=== PATIENT | female | born 1995 | race African-American/Black ===

== ENCOUNTER 2017-11-30 03:00 | Emergency (ER) | payer SELFPAY ==
[2017-11-30 03:35] LABS: BILIRUBIN,URINE NEGATIVE (NEG); CLARITY,URINE CLEAR; COLOR,URINE YELLOW; GLUCOSE,URINE NEGATIVE (NEG); NITRITE,URINE NEGATIVE (NEG); PROTEIN,URINE NEGATIVE (NEG-TRACE); UROBILINOGEN,URINE 0.2 mg/dL (0.2 mg/dL)
[2017-11-30 03:37] LABS: URINE HCG POC HCG NEGATIVE (Negative)
[2017-11-30 03:44] LABS: BACTERIA,URINE FEW /HPF (0-FEW); RBC,URINE 0 /HPF (0-2); SQUAMOUS EPITHELIAL CELL,UR FEW /LPF; TRICHOMONAS,URINE PRESENT; WBC,URINE 20-40 /HPF (0-4)
[2017-11-30 03:47] LABS: ADD MAN DIFF? NO
[2017-11-30 03:50] LABS: BASO # 0.1 x10^3/uL (0.0-0.2); BASO % 1 % (0-3); EOS # 0.1 x10^3/uL (0.0-0.7); EOS % 1 % (0-3); HEMATOCRIT 36.1 % (36.0-47.0); HEMOGLOBIN 12.2 g/dL (12.0-15.5); LYMPH # 2.8 x10^3/uL (1.0-4.8); LYMPH % 30 % (24-48); MEAN CORPUSCULAR HEMOGLOBIN 31 pg (25-35); MEAN CORPUSCULAR HGB CONC 34 g/dL (31-37); MEAN CORPUSCULAR VOLUME 92 fL (79-100); MONO # 0.7 x10^3/uL (0.0-1.1); MONO % 8 % (0-9); NEUT # 5.6 x10^3uL (1.8-7.7); NEUT % 60 % (31-73); PLATELET COUNT 260 x10^3/uL (140-400); RED BLOOD COUNT 3.94 x10^6/uL (3.50-5.40); RED CELL DISTRIBUTION WIDTH 14.3 % (11.5-14.5); WHITE BLOOD COUNT 9.3 x10^3/uL (4.0-11.0)
[2017-11-30] MEDS: HYOSCYAMINE 0.125 MG TAB.RAPDIS PO (03:59)
[2017-11-30 04:26] LABS: ANION GAP 9 (6-14); BLOOD UREA NITROGEN 9 mg/dL (7-20); BUN/CREATININE RATIO 11 (6-20); CALCIUM 8.7 mg/dL (8.5-10.1); CARBON DIOXIDE 27 mmol/L (21-32); CHLORIDE 106 mmol/L (98-107); CREATININE 0.8 mg/dL (0.6-1.0); GFR 106.6; GLUCOSE 73 mg/dL (70-99); POTASSIUM 3.5 mmol/L (3.5-5.1); SODIUM 142 mmol/L (136-145)
[2017-11-30 04:32] LABS: ALBUMIN 3.4 g/dL (3.4-5.0); ALBUMIN/GLOBULIN RATIO 0.9 (1.0-1.7); ALK PHOS 50 U/L (46-116); ALT (SGPT) 15 U/L (14-59); AST (SGOT) 11 U/L (15-37); LIPASE 195 U/L (73-393); TOTAL BILIRUBIN 0.2 mg/dL (0.2-1.0); TOTAL PROTEIN 7.1 g/dL (6.4-8.2)
== END 2017-11-30 04:52 | disposition home or self-care (01) ==
LOC: ER 03:00
DX: R10.84 Generalized abdominal pain (principal); A59.9 Trichomoniasis, unspecified
CPT/HCPCS: 36415; 80053; 81001; 81025; 83690; 85025; 87086; 99284

== ENCOUNTER 2017-12-15 07:15 | Emergency (ER) | payer SELFPAY ==
[2017-12-15 07:42] LABS: URINE HCG POC HCG NEGATIVE (Negative)
[2017-12-15] MEDS: ONDANSETRON PF 4 MG/2 ML VIAL. IV (08:01)
[2017-12-15] MEDS: IV NORMAL SALINE 1000ML BAG 1,000 ML IV (08:01)
[2017-12-15] MEDS: KETOROLAC 30 MG/ML INJ. IV (08:03)
[2017-12-15] MEDS: diphenhydrAMINE 50 MG/ML VIAL IVP (08:59)
[2017-12-15] MEDS: MORPHINE SULFATE 10 MG/ML VIAL. IV (09:00)
== END 2017-12-15 10:27 | disposition home or self-care (01) ==
LOC: ER 10:27
DX: R51 Headache (principal); R11.0 Nausea
CPT/HCPCS: 70450; 81025; 96361; 96374; 96375; 99285-25; J1200; J1885; J2270; J2405; J7030

== ENCOUNTER 2017-12-16 04:41 | Emergency (ER) | payer SELFPAY ==
[2017-12-16 05:20] LABS: ADD MAN DIFF? NO
[2017-12-16 05:23] LABS: URINE HCG POC HCG NEGATIVE (Negative)
[2017-12-16 05:27] LABS: BASO # 0.1 x10^3/uL (0.0-0.2); BASO % 1 % (0-3); EOS # 0.1 x10^3/uL (0.0-0.7); EOS % 1 % (0-3); HEMATOCRIT 37.7 % (36.0-47.0); HEMOGLOBIN 12.3 g/dL (12.0-15.5); LYMPH # 2.7 x10^3/uL (1.0-4.8); LYMPH % 26 % (24-48); MEAN CORPUSCULAR HEMOGLOBIN 30 pg (25-35); MEAN CORPUSCULAR HGB CONC 33 g/dL (31-37); MEAN CORPUSCULAR VOLUME 93 fL (79-100); MONO # 0.8 x10^3/uL (0.0-1.1); MONO % 7 % (0-9); NEUT % 65 % (31-73); PLATELET COUNT 342 x10^3/uL (140-400); RED BLOOD COUNT 4.05 x10^6/uL (3.50-5.40); RED CELL DISTRIBUTION WIDTH 14.3 % (11.5-14.5); WHITE BLOOD COUNT 10.8 x10^3/uL (4.0-11.0)
[2017-12-16 05:29] LABS: BILIRUBIN,URINE NEGATIVE (NEG); CLARITY,URINE CLEAR; COLOR,URINE YELLOW; GLUCOSE,URINE NEGATIVE (NEG); NITRITE,URINE NEGATIVE (NEG); PROTEIN,URINE NEGATIVE (NEG-TRACE); UROBILINOGEN,URINE 0.2 mg/dL (0.2 mg/dL)
[2017-12-16] MEDS: IOHEXOL 300 MG/ML 100ML VIAL. IV (05:30)
[2017-12-16] MEDS ORDERED: CONTRAST GIVEN MC (05:30)
[2017-12-16 05:32] LABS: ANION GAP 9 (6-14); BLOOD UREA NITROGEN 9 mg/dL (7-20); BUN/CREATININE RATIO 10 (6-20); CALCIUM 8.8 mg/dL (8.5-10.1); CARBON DIOXIDE 28 mmol/L (21-32); CHLORIDE 105 mmol/L (98-107); CREATININE 0.9 mg/dL (0.6-1.0); GFR 93.1; GLUCOSE 77 mg/dL (70-99); SODIUM 142 mmol/L (136-145)
[2017-12-16 05:38] LABS: ALBUMIN 3.9 g/dL (3.4-5.0); ALBUMIN/GLOBULIN RATIO 1.1 (1.0-1.7); ALK PHOS 57 U/L (46-116); ALT (SGPT) 18 U/L (14-59); AST (SGOT) 17 U/L (15-37); LIPASE 225 U/L (73-393); TOTAL BILIRUBIN 0.2 mg/dL (0.2-1.0); TOTAL PROTEIN 7.3 g/dL (6.4-8.2)
[2017-12-16 05:57] LABS: BACTERIA,URINE 0 /HPF (0-FEW); RBC,URINE 0 /HPF (0-2); SQUAMOUS EPITHELIAL CELL,UR MOD /LPF; WBC,URINE OCC /HPF (0-4)
[2017-12-16 06:33] LABS: BARBITURATES NEG (NEG); BENZODIAZEPINES NEG (NEG); CANNABINOIDS NEG (NEG); COCAINE NEG (NEG); METHADONE NEG (NEG); OPIATES NEG (NEG); PHENCYCLIDINE NEG (NEG)
[2017-12-16 06:34] LABS: AMPHETAMINE/METHAMPHETAMINE NEG (NEG); ETHANOL, URINE NEG (NEG)
[2017-12-16] MEDS: ONDANSETRON PF 4 MG/2 ML VIAL. IV (07:30)
[2017-12-16] MEDS: IV NORMAL SALINE 1000ML BAG 1,000 ML IV (07:30)
[2017-12-16] MEDS: KETOROLAC 15 MG/ML VIAL. IV (07:30)
== END 2017-12-16 08:40 | disposition home or self-care (01) ==
LOC: ER 08:40
DX: R10.31 Right lower quadrant pain (principal); F41.9 Anxiety disorder, unspecified
CPT/HCPCS: 36415; 74177; 80053; 80307; 81001; 81025; 83690; 85025; 96361; 96374; 96375; 99285-25; J1885; J2405; J7030; Q9967